=== PATIENT | female | born 1945 | race Caucasian/White ===

== ENCOUNTER 2016-11-03 09:28 | Inpatient (IN) | payer MEDICARE, OTHER ==
[~2016-11-03] VITALS: Ht 160 cm; Wt 66.0 kg
[2016-11-03 10:26] LABS: Basophils # (auto) 0 uL; Basophils % (auto) 0.4 % (0.0-2.0); Eosinophils # (auto) 0.4 uL; Eosinophils % (auto) 6.4 % (0.0-7.0); Hemoglobin 12.2 g/dL (12.2-16.2); Lymphocytes # (auto) 1.6 uL; Lymphocytes % (auto) 24.8 % (10.0-50.0); Mean Corpuscular Hgb Conc. 32.2 g/dL (32.0-36.0); Mean Platelet Volume 9.4 fL (7.4-10.4); Monocytes # (auto) 0.6 uL; Monocytes % (auto) 8.8 % (0.0-12.0); Neutrophils # (auto) 3.8 uL; Neutrophils % (auto) 59.6 % (37.0-80.0); Platelet Count (auto) 429 10^3/uL (140-450); Red Cell Distribution Width 17.2 % (11.6-16.0); White Blood Cell 6.3 10^3/uL (4.4-10.8)
[2016-11-03 10:35] LABS: BUN/Creatinine Ratio 26.9; Bilirubin, Total 0.4 mg/dL (0.2-1.0); Calcium 9.9 mg/dL (8.5-10.1); Magnesium 2.6 mg/dL (1.6-2.6); Potassium 3.9 mmol/L (3.5-5.1); Total Protein 8.2 g/dL (6.4-8.2)
[2016-11-03] MEDS ORDERED: MECLIZINE HCL 25 MG TAB PO ONE (12:45)
[2016-11-03] MEDS ORDERED: MORPHINE SULF INJ 2 MG/ML SYRINGE 1ML IV PRN ×2 (13:00)
[2016-11-03] MEDS ORDERED: ONDANSETRON HCL 4 MG/2 ML VIAL IV PRN (13:00)
[2016-11-03] MEDS ORDERED: ACETAMINOPHEN 325 MG TAB PO PRN (13:00)
[2016-11-03] MEDS ORDERED: ZOLPIDEM TARTRATE 5 MG TAB PO PRN (13:00)
[2016-11-03] MEDS ORDERED: ALUM & MAG HYDROX-SIMETH LIQ(MAALOX) 30 ML PO PRN (13:00)
[2016-11-03] MEDS ORDERED: LORazepam 0.5 MG TAB PO PRN (13:00)
[2016-11-03] MEDS ORDERED: NITROGLYCERIN 0.4 MG SL TAB SL PRN ×2 (13:00)
[2016-11-03] MEDS ORDERED: traMADol HCL 50 MG TAB PO PRN (13:00)
[2016-11-03] MEDS ORDERED: LOSARTAN POTASSIUM 50 MG TAB PO ONE (13:15)
[2016-11-03] MEDS ORDERED: DEXTROSE (50%) 50ML SYRG IV PRN (13:15)
[2016-11-03] MEDS ORDERED: LOSARTAN POTASSIUM 25 MG TAB PO ONE (13:15)
[2016-11-03] MEDS ORDERED: CLOPIDOGREL BISULFATE 75 MG TAB PO SCH (13:15)
[2016-11-03] MEDS ORDERED: ASPirin 81 mg TAB PO ONE (13:15)
[2016-11-03] MEDS ORDERED: METOPROLOL TARTRATE 25 MG TAB PO ONE (13:15)
[2016-11-03] MEDS: DOCUSATE SOD 100 MG CAP PO SCH (13:36)
[2016-11-03] MEDS: SODIUM CHLOR 0.9% PF (SALINE LOCK) 10ML VIAL IV SCH ×2 (14:00→21:57)
[2016-11-03 17:48] VITALS: BP 156/83
[2016-11-03] MEDS ORDERED: LORazepam 2MG/ML-1ML VIAL IV PRN (19:15)
[2016-11-03 20:19] LABS: Cholesterol 178 mg/dL (<200); HDL Cholesterol 40 mg/dL (40-59); LDL Cholesterol 122 mg/dL (<100); Triglycerides 141 mg/dL (<150)
[2016-11-03 20:30] LABS: B-Type Natriuretic Peptide 200.11 pg/mL (0-100); Temperature: 21.9 C (20.0-25.0)
[2016-11-03 21:00] VITALS: BP 139/86
[2016-11-03] MEDS ORDERED: MULT-569 PO (21:00)
[2016-11-03] MEDS ORDERED: ASP81EC PO (21:00)
[2016-11-03] MEDS ORDERED: LOSA100T27 PO (21:00)
[2016-11-03] MEDS ORDERED: MET50T GT (21:00)
[2016-11-03] MEDS ORDERED: EZET10TA2 PO (21:00)
[2016-11-03] MEDS ORDERED: CALC-337 OR (21:00)
[2016-11-03] MEDS: METOPROLOL TARTRATE 25 MG TAB PO SCH (21:57)
[2016-11-03] MEDS: MECLIZINE HCL 25 MG TAB PO SCH (21:57)
[2016-11-03] MEDS: ACCU-CHEK COMFORT CURVE STRIP VI SCH (21:58)
[2016-11-03] MEDS: InsuLIN REG 1unit/0.01ml Soln (100units/ml) SC SCH (21:58)
[2016-11-03] MEDS ORDERED: ENALAPRIL MALEATE 2.5 MG TAB PO SCH (22:00)
[2016-11-04 05:12] VITALS: BP_SYST 129; BP_SYST 146; BP_DIAS 66; BP_DIAS 67
[2016-11-04] MEDS: MECLIZINE HCL 25 MG TAB PO SCH ×3 (05:38→21:42)
[2016-11-04] MEDS: SODIUM CHLOR 0.9% PF (SALINE LOCK) 10ML VIAL IV SCH ×3 (05:38→21:43)
[2016-11-04 06:03] LABS: Urine RBC None Seen /hpf (0 - 4)
[2016-11-04 06:06] LABS: Basophils # (auto) 0 uL; Basophils % (auto) 0.5 % (0.0-2.0); DEFINITIVE VIEW TRANSMISSION; Eosinophils # (auto) 0.4 uL; Eosinophils % (auto) 7.4 % (0.0-7.0); Hematocrit 32.9 % (36.0-46.0); Hemoglobin 10.4 g/dL (12.2-16.2); Lymphocytes # (auto) 1.5 uL; Lymphocytes % (auto) 25.9 % (10.0-50.0); Mean Corpuscular Hemoglobin 26.5 pg (28.0-32.0); Mean Corpuscular Hgb Conc. 31.5 g/dL (32.0-36.0); Mean Corpuscular Volume 84.1 fL (80.0-100.0); Mean Platelet Volume 8.8 fL (7.4-10.4); Monocytes # (auto) 0.6 uL; Neutrophils # (auto) 3.2 uL; Neutrophils % (auto) 55.2 % (37.0-80.0); Platelet Count (auto) 400 10^3/uL (140-450); Red Cell Distribution Width 16.9 % (11.6-16.0); White Blood Cell 5.8 10^3/uL (4.4-10.8)
[2016-11-04 06:17] LABS: Urine Bilirubin Negative (Negative); Urine Blood Negative /uL (Negative); Urine Color Yellow (Yellow); Urine Glucose Normal (Normal); Urine Ketone Negative (Negative); Urine Nitrite Negative (Negative); Urine Squamous Epithelial Cell FEW /hpf (<5); Urine Urobilinogen Normal (Negative)
[2016-11-04 06:32] LABS: Albumin 3.2 g/dL (3.4-5.0); Bilirubin, Total 0.4 mg/dL (0.2-1.0); Calcium 9.3 mg/dL (8.5-10.1); Magnesium 2.5 mg/dL (1.6-2.6); Potassium 3.8 mmol/L (3.5-5.1); Total Protein 6.5 g/dL (6.4-8.2)
[2016-11-04] MEDS: ACCU-CHEK COMFORT CURVE STRIP VI SCH ×2 (06:32→11:30)
[2016-11-04] MEDS: InsuLIN REG 1unit/0.01ml Soln (100units/ml) SC SCH ×2 (06:32→11:30)
[2016-11-04] MEDS ORDERED: ADENOSINE 57 MG in GIVE UN-DILUTED 0 ML IV STA (08:16)
[2016-11-04 09:00] VITALS: BP 139/69
[2016-11-04] MEDS: [UNRECOGNIZED DRUG - OTHER] PO SCH (10:00)
[2016-11-04] MEDS: ASPirin 81 mg TAB PO SCH (10:00)
[2016-11-04] MEDS ORDERED: LOSARTAN POTASSIUM 25 MG TAB PO SCH (10:00)
[2016-11-04] MEDS: VALACYCLOVIR HCL 500 MG TAB PO SCH (10:00)
[2016-11-04] MEDS: MULTIPLE VITAMIN TAB PO SCH (11:54)
[2016-11-04] MEDS: DOCUSATE SOD 100 MG CAP PO SCH (11:54)
[2016-11-04] MEDS: CALCIUM W/VIT D (600MG/400IU) TAB PO SCH (11:55)
[2016-11-04] MEDS: LOSARTAN POTASSIUM 50 MG TAB PO SCH (11:56)
[2016-11-04] MEDS: METOPROLOL TARTRATE 25 MG TAB PO SCH ×2 (11:58→21:43)
[2016-11-04] MEDS ORDERED: METO25TA5 PO (14:38)
[2016-11-04] MEDS ORDERED: AMLO10TA2 PO (14:38)
[2016-11-04 17:00] VITALS: BP 148/74
[2016-11-04 21:49] VITALS: BP 135/66
[2016-11-05 04:54] VITALS: BP 145/71
[2016-11-05] MEDS: MECLIZINE HCL 25 MG TAB PO SCH (05:55)
[2016-11-05] MEDS: SODIUM CHLOR 0.9% PF (SALINE LOCK) 10ML VIAL IV SCH (05:56)
[2016-11-05 09:00] VITALS: BP 134/75
[2016-11-05] MEDS: MULTIPLE VITAMIN TAB PO SCH (10:07)
[2016-11-05] MEDS: ASPirin 81 mg TAB PO SCH (10:07)
[2016-11-05] MEDS: METOPROLOL TARTRATE 25 MG TAB PO SCH (10:09)
[2016-11-05] MEDS: DOCUSATE SOD 100 MG CAP PO SCH (10:15)
[2016-11-05] MEDS: LOSARTAN POTASSIUM 50 MG TAB PO SCH (10:16)
[2016-11-05] MEDS: VALACYCLOVIR HCL 500 MG TAB PO SCH (10:16)
[2016-11-05] MEDS: CALCIUM W/VIT D (600MG/400IU) TAB PO SCH (10:16)
[2016-11-05] MEDS: [UNRECOGNIZED DRUG - OTHER] PO SCH (10:17)
[2016-11-05 12:36] VITALS: BP 134/75
[2016-11-05 13:00] VITALS: BP 151/70
== END 2016-11-05 14:55 | disposition home or self-care (01) | DRG 74 ==
LOC: ER 09:30 → TELE 09:31 → TELE-E-ADS 16:44 → TELE-CENTR 19:02
PROVIDERS: ADMIT Internal Medicine; ATTEND Internal Medicine
DX: G90.8 Other disorders of autonomic nervous system (principal); I95.9 Hypotension, unspecified; E78.5 Hyperlipidemia, unspecified; I10 Essential (primary) hypertension; E11.9 Type 2 diabetes mellitus without complications; I25.10 Atherosclerotic heart disease of native coronary artery without angina pectoris; I35.0 Nonrheumatic aortic (valve) stenosis; M81.0 Age-related osteoporosis without current pathological fracture; Z96.659 Presence of unspecified artificial knee joint; M12.9 Arthropathy, unspecified; M48.00 Spinal stenosis, site unspecified; Z82.49 Family history of ischemic heart disease and other diseases of the circulatory system; Z88.0 Allergy status to penicillin; Z85.038 Personal history of other malignant neoplasm of large intestine; Z95.5 Presence of coronary angioplasty implant and graft; I25.2 Old myocardial infarction; Z79.82 Long term (current) use of aspirin; Z88.2 Allergy status to sulfonamides; Z88.8 Allergy status to other drugs, medicaments and biological substances; Z85.118 Personal history of other malignant neoplasm of bronchus and lung; Z86.73 Personal history of transient ischemic attack (TIA), and cerebral infarction without residual deficits; R42 Dizziness and giddiness
CPT/HCPCS: 36415; 70545; 70551; 71010; 78452; 80053; 80061; 81001; 82962; 83036; 83735; 83880; 84443; 84484; 85025; 93005; 93017; 93306; 93886; 94761; J0153

== ENCOUNTER → 2017-02-02 | Outpatient (CLI) | payer MEDICARE, OTHER ==
[~2017-02-02] MED LIST: AMLO10TA2 PO; ASP81EC PO; CALC-337 OR; EZET10TA2 PO; LOSA100T27 PO; METO25TA5 PO; MULT-569 PO
== END | disposition home or self-care (01) ==
LOC: LAB 10:00
PROVIDERS: ATTEND Physician Assistant
DX: D23.5 Other benign neoplasm of skin of trunk (principal)

== ENCOUNTER → 2018-09-27 | Outpatient (CLI) | payer MEDICARE, OTHER ==
[~2018-09-27] MED LIST changes: +AMLO10TA12 PO; -AMLO10TA2 PO; +CLOP75TA28 PO; -EZET10TA2 PO; +EZET10TA6 PO; +LOSA-49 PO; -LOSA100T27 PO
[2018-09-27 11:55] VITALS: BP 144/63
[2018-09-27 12:35] VITALS: BP 150/68
[2018-09-27 16:17] LABS: Calcium 9.4 mg/dL (8.5-10.1); Potassium 3.8 mmol/L (3.5-5.1)
[2018-09-27 16:26] LABS: INR 0.97 (0.9-1.15); Partial Thromboplastin Time 28.5 sec (23.78-33.04); Prothrombin Time 10.4 sec (9.27-12.13)
[2018-09-27 17:12] LABS: Basophils # (auto) 0 uL; Basophils % (auto) 0.5 % (0.0-2.0); Eosinophils # (auto) 0.3 uL; Eosinophils % (auto) 5.3 % (0.0-7.0); Hematocrit 35.6 % (36.0-46.0); Hemoglobin 11.8 g/dL (12.2-16.2); Lymphocytes # (auto) 1.1 uL; Lymphocytes % (auto) 20.7 % (10.0-50.0); Mean Corpuscular Volume 87.7 fL (80.0-100.0); Monocytes # (auto) 0.5 uL; Monocytes % (auto) 9.4 % (0.0-12.0); Neutrophils # (auto) 3.3 uL; Neutrophils % (auto) 64.1 % (37.0-80.0); Nucleated Red Blood Cells % 1.2 %; Platelet Count (auto) 314 10^3/uL (140-450); Red Blood Cells 4.06 10^6/uL (4.0-5.20); White Blood Cell 5.2 10^3/uL (4.4-10.8)
== END | disposition home or self-care (01) ==
LOC: Rad HDHVI 11:42
PROVIDERS: ATTEND Internal Medicine Cardiovascular Disease
DX: Z01.818 Encounter for other preprocedural examination (principal); D64.9 Anemia, unspecified; R79.1 Abnormal coagulation profile; I10 Essential (primary) hypertension; R94.31 Abnormal electrocardiogram [ECG] [EKG]
CPT/HCPCS: 36415; 71046; 80048; 85025; 85610; 85730; 93005; G0463

== ENCOUNTER → 2018-12-14 | Outpatient (CLI) | payer MEDICARE, OTHER ==
[~2018-12-14] VITALS: Ht 160 cm; Wt 72.1 kg
[~2018-12-14] MED LIST changes: -AMLO10TA12 PO; -ASP81EC PO; -LOSA-49 PO
== END | disposition home or self-care (01) ==
LOC: Rad HDHVI 13:24
PROVIDERS: ATTEND Internal Medicine Cardiovascular Disease
DX: I42.0 Dilated cardiomyopathy (principal); I20.9 Angina pectoris, unspecified; I21.4 Non-ST elevation (NSTEMI) myocardial infarction; I10 Essential (primary) hypertension
CPT/HCPCS: 78452; 93017; 96374; A9500

== ENCOUNTER → 2019-01-07 | Outpatient (CLI) | payer MEDICARE, OTHER | END | disposition home or self-care (01) | LOC: Rad HDHVI 12:57 | PROVIDERS: ATTEND Internal Medicine Cardiovascular Disease | DX: I34.0 Nonrheumatic mitral (valve) insufficiency (principal); I35.0 Nonrheumatic aortic (valve) stenosis; I10 Essential (primary) hypertension; I20.9 Angina pectoris, unspecified | CPT/HCPCS: 93306 ==

== ENCOUNTER → 2019-09-19 | Outpatient (CLI) | payer MEDICARE, OTHER ==
[~2019-09-19] MED LIST changes: +EZET10TA22 PO; -EZET10TA6 PO
[2019-09-19 12:28] LABS: Potassium 4.1 mmol/L (3.5-5.1)
[2019-09-19 12:47] LABS: Albumin 3.7 g/dL (3.4-5.0); BUN/Creatinine Ratio 17.3; Bilirubin, Total 0.4 mg/dL (0.2-1.0); Calcium 9.6 mg/dL (8.5-10.1); Total Protein 8.6 g/dL (6.4-8.2)
== END | disposition home or self-care (01) ==
LOC: LAB 10:26
PROVIDERS: ATTEND Internal Medicine Cardiovascular Disease
DX: I10 Essential (primary) hypertension (principal); Z79.899 Other long term (current) drug therapy
CPT/HCPCS: 36415; 80053

== ENCOUNTER → 2019-09-28 | Outpatient (CLI) | payer MEDICARE, OTHER | END | disposition home or self-care (01) | LOC: Rad HDHVI 08:07 | PROVIDERS: ATTEND Internal Medicine Cardiovascular Disease | DX: M71.22 Synovial cyst of popliteal space [Baker], left knee (principal) | CPT/HCPCS: 93971 ==

== ENCOUNTER → 2019-10-31 | Outpatient (CLI) | payer MEDICARE, OTHER | END | disposition home or self-care (01) | LOC: Rad HDHVI 10:51 | PROVIDERS: ATTEND Internal Medicine Cardiovascular Disease | DX: I70.202 Unspecified atherosclerosis of native arteries of extremities, left leg (principal); M54.5 Low back pain; M25.559 Pain in unspecified hip; M25.569 Pain in unspecified knee; M17.12 Unilateral primary osteoarthritis, left knee; M71.22 Synovial cyst of popliteal space [Baker], left knee; I25.2 Old myocardial infarction; I10 Essential (primary) hypertension; M62.58 Muscle wasting and atrophy, not elsewhere classified, other site; M62.50 Muscle wasting and atrophy, not elsewhere classified, unspecified site; M51.36 Other intervertebral disc degeneration, lumbar region; M48.061 Spinal stenosis, lumbar region without neurogenic claudication; Z90.49 Acquired absence of other specified parts of digestive tract | CPT/HCPCS: 72131; 73700 ==